=== PATIENT | female | born 1995 | race African-American/Black ===

== ENCOUNTER 2016-10-02 14:38 | Emergency (ER) | payer OTHER, MEDICAID ==
[~2016-10-02] VITALS: Ht 172.7 cm; Wt 85.0 kg
[2016-10-02 14:40] VITALS: BP 114/72; PULSE 82; RESP 15; TEMP 97.9; O2SAT 98
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
[2016-10-02] MEDS ORDERED: KETOROLAC TROMETHAMINE 60 MG/2 ML (IM) VIAL IM ONE (15:30)
[2016-10-02] MEDS ORDERED: ORPHENADRINE INJ 60 MG/2 ML AMP IM ONE (15:30)
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
[2016-10-02] MEDS ORDERED: DICL50TA3 PO (16:15)
[2016-10-02] MEDS ORDERED: ROBA750T PO (16:15)
== END 2016-10-02 16:51 | disposition home or self-care (01) ==
LOC: EDBD → NEPB 14:38
DX: S16.1XXA Strain of muscle, fascia and tendon at neck level, initial encounter (principal); S39.012A Strain of muscle, fascia and tendon of lower back, initial encounter; V43.62XA Car passenger injured in collision with other type car in traffic accident, initial encounter
CPT/HCPCS: 71010; 72050; 72100; 84703; 99283

== ENCOUNTER 2016-11-28 07:04 | Emergency (ER) | payer MEDICAID ==
[~2016-11-28] VITALS: Ht 167.6 cm; Wt 75.0 kg
[~2016-11-28 07:04] MED LIST: DICL50TA3 PO; ROBA750T PO
[2016-11-28 07:08] VITALS: BP 110/65; PULSE 85; RESP 16; TEMP 97.7; O2SAT 100
--- NOTE | 2016-11-28 07:39 | PD ---
HPI Chief Complaint: Skin Problem Time Seen by Provider: 07:32 Travel History International Travel<30 days: No Contact w/Intl Traveler<30days: No Traveled to known affect area: No History of Present Illness HPI 21-year-old female with no significant past medical issues, presents to the ER today because she has noted genital sores that appeared on his own in the past week. She states it rodriguez. She denies any fevers, unusual vaginal discharge, urinary symptoms, or any other issues. She states that she is sexually active and had a male partner 1 month ago. She denies any other new partners. Modifying Factors: None Associated Signs & Symptoms: Genital sores Risk Factors: New sexual partner 1 month ago PFSH Past Medical History Diminished Hearing: No Immunizations Current: Yes ?: Not : 1 Para: 1 Social History Alcohol Use: No Tobacco Use: No Substance Use: No Allergies-Medications (Allergen,Severity, Reaction): Coded Allergies: No Known Allergies (Unverified , 11/28/16) Reported Meds & Prescriptions Reported Meds & Active Scripts Active Robaxin (Methocarbamol) 750 Mg Tab 750 Mg PO QID PRN 2 tabs QID for 2 days, then 1 tab QID thereafter Diclofenac Sodium DR (Diclofenac Sodium) 50 Mg Tabdr 50 Mg PO BID Review of Systems Except as stated in HPI: all other systems reviewed are Neg Physical Exam Narrative GENERAL: Well-nourished, well-developed young -[place] female patient in no acute distress. SKIN: Warm and dry. HEAD: Normocephalic. EYES: No scleral icterus. No injection or drainage. NECK: Supple, trachea midline. CARDIOVASCULAR: Regular rate and rhythm without murmurs, gallops, or rubs. RESPIRATORY: Breath sounds equal bilaterally. No accessory muscle use. GASTROINTESTINAL: Abdomen soft, non-tender, nondistended. GENITOURINARY: Normal external genitalia with notable small ulcerated lesions in the mucosal part of the left labia minora with no significant surrounding erythema. Vaginal vault without blood or drainage. Cervical os was closed without drainage. No cervical motion tenderness. Uterus nontender and nonenlarged. Bilateral adnexa nontender without masses. MUSCULOSKELETAL: No cyanosis, or edema. BACK: Nontender without obvious deformity. No CVA tenderness. Data Data Last Documented VS Vital Signs Date Time Temp Pulse Resp B/P Pulse Ox O2 Delivery O2 Flow Rate FiO2 11/28/16 07:08 97.7 85 16 110/65 100 Room Air Orders Herpes Simplex Virus Culture (11/28/16 07:16) Ed Urine Pregnancytest Poc (11/28/16 07:16) Gc And Chlamydia Pcr (11/28/16 08:03) Wet Prep Profile (11/28/16 08:03) MDM Medical Decision Making Medical Screen Exam Complete: Yes Emergency Medical Condition: Yes Medical Record Reviewed: Yes Differential Diagnosis Genital soresherpes versus folliculitis versus UTI Narrative Course Genital sores concerning for herpetic lesions. My plan would be to treat her for genital herpes. In addition, I have talked to her regarding treatment for other STDs as well considering that she had unprotected sex. She is agreeable to treatment. GC has been sent. Return for any worsening in pain, redness, fevers, or new symptoms as needed. The plan has been discussed with her and she states understanding. In addition, I have talked her regarding the fact that if the sores are herpetic, she may have ongoing intermittent outbreaks and that she is contagious to other people. She states understanding. Diagnosis Primary Impression: Herpes genitalis in women Med/Other Pt SpecificInfo: Prescription(s) given Scripts Acyclovir 400 Mg Hgi483 Mg PO TID 7 Days Ref 0 Prov:Sha Liu MD 11/28/16 Disposition: 01 DISCHARGE HOME Condition: Stable Sha Liu MD Nov 28, 2016 07:39
[2016-11-28] MEDS ORDERED: AZITHROMYCIN PWD FOR SUSP 1 GM PACKET PO ONE (08:30)
[2016-11-28] MEDS ORDERED: metroNIDAZOLE 500 MG TAB PO ONE (08:30)
[2016-11-28] MEDS ORDERED: LIDOCAINE HCL 1% 50 ML VIAL IM ONE (08:30)
[2016-11-28] MEDS ORDERED: cefTRIAXone 250 MG VIAL IM ONE (08:30)
[2016-11-28] MEDS ORDERED: ACYC400T PO (08:35)
[2016-11-28 11:52] LABS: CHLAMYDIA PCR NOT DETECTED (NOT DETECT); NEISSERIA PCR NOT DETECTED (NOT DETECT)
== END 2016-11-28 08:31 | disposition home or self-care (01) ==
LOC: NEPE 07:04
DX: A60.00 Herpesviral infection of urogenital system, unspecified (principal)
CPT/HCPCS: 84703; 87255; 87491; 87591; 96372; 99283; J0696

== ENCOUNTER 2016-12-13 10:31 | Emergency (ER) | payer MEDICAID ==
[~2016-12-13] VITALS: Ht 167.6 cm; Wt 80.0 kg
[~2016-12-13 10:31] MED LIST changes: +ACYC400T PO
[2016-12-13 10:33] VITALS: BP 137/99; PULSE 96; RESP 12; TEMP 98.9; O2SAT 100
--- NOTE | 2016-12-13 11:07 | PD ---
HPI Chief Complaint: Cold / Flu Symptoms Time Seen by Provider: 11:07 Travel History International Travel<30 days: No Contact w/Intl Traveler<30days: No Traveled to known affect area: No History of Present Illness HPI 21-year-old female presents to the emergency Department with complaint of nasal congestion, cough, body aches, headache since yesterday. Reports subjective fever and chills. Has not taken her temperature not reported MAXIMUM TEMPERATURE. Denies ear pain. Denies sore throat. Denies chest pain, shortness breath, abdominal pain. Reports vomiting one time yesterday. That she drink a lot of water and threw up all her water. Reports loose stool. Has tried taking Robitussin and NyQuil with some symptom relief. No known allergies. Denies significant past medical history. No other modifying factors or associated signs and symptoms. PFSH Past Medical History Diminished Hearing: No Immunizations Current: Yes ?: Not LMP: 11/13/16 : 1 Para: 1 Social History Alcohol Use: No Tobacco Use: No Substance Use: No Allergies-Medications (Allergen,Severity, Reaction): Coded Allergies: No Known Allergies (Unverified , 12/13/16) Reported Meds & Prescriptions Reported Meds & Active Scripts Active Tessalon Perles (Benzonatate) 100 Mg Cap 100 Mg PO TID PRN Nasonex Nasal Dunlevy (Mometasone Furoate) 50 Mcg/Act Naspr 2 Dunlevy EACH NARE DAILY PRN Ibuprofen 800 Mg Tab 800 Mg PO Q6HR PRN Acyclovir 400 Mg Tab 400 Mg PO TID 7 Days Robaxin (Methocarbamol) 750 Mg Tab 750 Mg PO QID PRN 2 tabs QID for 2 days, then 1 tab QID thereafter Diclofenac Sodium DR (Diclofenac Sodium) 50 Mg Tabdr 50 Mg PO BID Review of Systems Except as stated in HPI: all other systems reviewed are Neg Physical Exam Narrative GENERAL: Well-nourished, well-developed female patient, in no acute distress; afebrile, nontoxic-appearing SKIN: Warm and dry. No rash. HEAD: Atraumatic. Normocephalic. EYES: Pupils equal and round at 3 mm with brisk reaction. No scleral icterus. No injection or drainage. PERRLA. ENT: Mucosa pink and moist. No erythema or exudates. No uvular edema. No uvular , palatal, or tonsillar deviation. Airway patent. EARS: Bilateral pinnae and external canals appear within normal limits. Bilateral tympanic membranes without erythema, dullness or perforation. NECK: Trachea midline. No lymphadenopathy. CARDIOVASCULAR: Regular rate and rhythm. No murmur appreciated. RESPIRATORY: No accessory muscle use. Clear to auscultation. Breath sounds equal bilaterally. GASTROINTESTINAL: Abdomen soft, non-tender, nondistended. Hepatic and splenic margins not palpable. Bowel sounds are active 4 quadrants. MUSCULOSKELETAL: No obvious deformities. No clubbing. No cyanosis. No edema. NEUROLOGICAL: Awake and alert. Oriented 3. No obvious cranial nerve deficits. Motor grossly within normal limits. Normal speech. Moves all extremities. 5/5 strength to all extremities. PSYCHIATRIC: Appropriate mood and affect; insight and judgment normal. Data Data Last Documented VS Vital Signs Date Time Temp Pulse Resp B/P Pulse Ox O2 Delivery O2 Flow Rate FiO2 12/13/16 10:33 98.9 96 12 137/99 100 Orders Influenzae A/B Antigen (12/13/16 11:02) Ibuprofen (Motrin) (12/13/16 11:15) MDM Medical Decision Making Medical Screen Exam Complete: Yes Emergency Medical Condition: Yes Medical Record Reviewed: Yes Differential Diagnosis Viral illness, influenza, bronchitis, URI, gastroenteritis Narrative Course 21-year-old female with cold/flu symptoms since yesterday. Patient is afebrile in the ER. She reports subjective fever and chills at home. Has not taken her temperature and cannot reports a MAXIMUM TEMPERATURE. Patient is nontoxic- appearing. Reports vomiting one time yesterday and loose stool. Denies abdominal pain. Physical exam is unremarkable. Ibuprofen ordered. Influenza ordered. 1147: Influenza negative. Discussed viral illness and symptomatic management. Tessalon Perles, ibuprofen, Nasonex nasal spray prescribed for home. Patient verbalizes understanding and agreement with treatment plan. Patient is medically cleared and stable for discharge. Discussed reasons to return to the emergency department. Instructed patient to follow up with primary care provider. Patient agrees with treatment plan. The patients vital signs are stable and the patient is stable for outpatient follow-up and treatment. Patient discharged home, stable and in no acute distress. Diagnosis Primary Impression: Viral illness Referrals: Primary Care Physician Patient Instructions: Cold Symptoms (ED), General Instructions, Safe Use of Cough and Cold Medicines (ED) Departure Forms: Tests/Procedures, Work Release Enter return to work date: Dec 14, 2016 Additional Instructions: Ibuprofen or Tylenol as directed and as needed to reduce fever; may alternate ibuprofen and Tylenol as needed every 3 hours to minimize fever [id number] antihistamines or decongestions as directed and as needed for symptom management Get plenty of sleep/rest Drink plenty of fluids to prevent dehydration Wallace diet to encourage nutrition such as crackers, fruit, applesauce, toast, soup etc. Use an air humidifier/turn off ceiling fans Follow-up with your primary care provider within 1 day Return immediately to the emergency department with worsening of symptoms Med/Other Pt SpecificInfo: Prescription(s) given Scripts Benzonatate (Tessalon Perles)100 Mg Oli280 Mg PO TID PRN (COUGH) #20 CAP Ref 0 Prov:Gloria Araujo 12/13/16 Mometasone Nasal Dunlevy (Nasonex Nasal Dunlevy)50 Mcg/Act Naspr2 Dunlevy EACH NARE DAILY PRN (NASAL CONGESTION) #1 BOTTLE Ref 0 Prov:Gloria Araujo 12/13/16 Ibuprofen 800 Mg [id number] Mg PO Q6HR PRN (PAIN) #30 TAB Ref 0 Prov:Gloria Araujo 12/13/16 Disposition: 01 DISCHARGE HOME Condition: Stable Gloria Araujo Dec 13, 2016 11:07
[2016-12-13] MEDS ORDERED: IBUPROFEN 800 MG TAB PO ONE (11:15)
[2016-12-13] MEDS ORDERED: IBUP800T23 PO (11:49)
[2016-12-13] MEDS ORDERED: MOME17I EACH NARE (11:49)
[2016-12-13] MEDS ORDERED: BENZ100 PO (11:49)
== END 2016-12-13 11:54 | disposition home or self-care (01) ==
LOC: NETRI 10:31
DX: B34.9 Viral infection, unspecified (principal)
CPT/HCPCS: 87804; 99283

== ENCOUNTER 2016-12-15 08:31 | Emergency (ER) | payer MEDICAID ==
[~2016-12-15] VITALS: Ht 167.6 cm; Wt 78.0 kg
[~2016-12-15 08:31] MED LIST changes: +BENZ100 PO; +IBUP800T23 PO; +MOME17I EACH NARE
--- NOTE | 2016-12-15 08:43 | PD ---
HPI . head congestion, sore throat worse since last visit Chief Complaint: Cold / Flu Symptoms Time Seen by Provider: 08:42 Travel History International Travel<30 days: No Contact w/Intl Traveler<30days: No Traveled to known affect area: No History of Present Illness HPI 21-year-old female here with complaints of head congestion, sore throat and cough worse since last visit on December 13, 2016. Patient was here and diagnosed with viral illness and tells me that she has been worse ever since. She says she is still experiencing significant coughing, sore throat and more head congestion. She admits to having headache due to her sinus pressure. She denies any fever or chills. She has not been able to go to work. She has no other complaints and is requesting a note for work today. PFSH Past Medical History Diminished Hearing: No Immunizations Current: Yes ?: Not LMP: last month : 1 Para: 1 Social History Alcohol Use: No Tobacco Use: No Substance Use: No Allergies-Medications (Allergen,Severity, Reaction): Coded Allergies: No Known Allergies (Unverified , 12/15/16) Reported Meds & Prescriptions Reported Meds & Active Scripts Active Prednisone 50 Mg Tab 50 Mg PO DAILY Augmentin (Amoxicillin-Clavulanate) 875-125 mg Tab 875 Mg PO BID not for use in CrCl <30 ml/min. Tessalon Perles (Benzonatate) 100 Mg Cap 100 Mg PO TID PRN Nasonex Nasal [place] (Mometasone Furoate) 50 Mcg/Act Naspr 2 [place] EACH NARE DAILY PRN Ibuprofen 800 Mg Tab 800 Mg PO Q6HR PRN Acyclovir 400 Mg Tab 400 Mg PO TID 7 Days Robaxin (Methocarbamol) 750 Mg Tab 750 Mg PO QID PRN 2 tabs QID for 2 days, then 1 tab QID thereafter Diclofenac Sodium DR (Diclofenac Sodium) 50 Mg Tabdr 50 Mg PO BID Review of Systems General / Constitutional: No: Fever Eyes: No: Visual changes HENT: Positive: Headaches, Sore Throat, Congestion Cardiovascular: No: Chest Pain or Discomfort Respiratory: Positive: Cough, No: Shortness of Breath Gastrointestinal: No: Abdominal Pain Genitourinary: No: Dysuria Musculoskeletal: No: Pain Skin: No Rash Neurologic: No: Weakness Psychiatric: No: Depression Endocrine: No: Polydipsia Hematologic/Lymphatic: No: Easy Bruising Physical Exam Narrative GENERAL: AAO x 3, no acute distress, Well-nourished, well-developed patient. SKIN: Warm and dry. No visible rashes or bruising. HEAD: Normocephalic and atraumatic. EYES: No scleral icterus. No injection or drainage. EOM intact, PERRLA ENT: No nasal drainage noted. Mucous membranes pink. Airway patent. moderate posterior pharynx erythema, without exudates or edema. Frontal and maxillary sinus tenderness to palpation. NECK: Supple, trachea midline. No JVD.cervical chain lymphadenopathy present. CARDIOVASCULAR: Regular rate and rhythm without murmurs, gallops, or rubs. RESPIRATORY: Breath sounds equal bilaterally. No accessory muscle use. No rhonchi or rales. GASTROINTESTINAL: Abdomen soft, non-tender, nondistended. EXTREMITIES: No cyanosis or edema. BACK: Nontender without obvious deformity. No CVA tenderness. PSYCH: AAO x 3, normal affect. Data Data Last Documented VS Vital Signs Date Time Temp Pulse Resp B/P Pulse Ox O2 Delivery O2 Flow Rate FiO2 12/15/16 08:50 98.2 102 16 125/88 98 MDM Medical Decision Making Medical Screen Exam Complete: Yes Emergency Medical Condition: Yes Medical Record Reviewed: Yes (12/13/16 viral illness) Differential Diagnosis acute sinusitis, bronchitis, less like PNA Narrative Course 21-year-old female here with complaints of head congestion, sore throat and cough worse since last visit on December 13, 2016. Patient was here and diagnosed with viral illness and tells me that she has been worse ever since. She says she is still experiencing significant coughing, sore throat and more head congestion. She admits to having headache due to her sinus pressure. She denies any fever or chills. She has not been able to go to work. She has no other complaints and is requesting a note for work today. Patient seen and examined. She appears to have a sinusitis, pharyngitis and possible bronchitis.I do not suspect any pneumonia. I will go ahead and treat her with a course of antibiotics and steroids. I've advised her to continue ibuprofen and Tylenol as needed for pain and fever. I've explained that she will need to follow-up with primary care provider. Patient verbalized understanding of instructions, questions were answered, and thanked me for their care. I advised them if their condition worsens, please return to the nearest emergency room for further care. Diagnosis Primary Impression: Acute sinusitis Qualified Code: J01.90 - Acute sinusitis, recurrence not specified, unspecified location Additional Impressions: Acute pharyngitis Qualified Code: J02.9 - Acute pharyngitis, unspecified etiology Bronchitis Patient Instructions: Acute Bronchitis (ED), General Instructions, Pharyngitis (ED), Sinusitis (ED) Departure Forms: Tests/Procedures, Work Release Enter return to work date: Dec 16, 2016 Additional Instructions: Please return to emergency department if your symptoms return or worsen. Follow up with your primary care provider. Take medications as prescribed. Take medications as prescribed. Try salt water gargles. Do not share utensils, toothbrush, etc. If you develop difficulty breathing, please go to the nearest emergency room. Med/Other Pt SpecificInfo: Prescription(s) given Scripts Prednisone 50 Mg Tab50 Mg PO DAILY #5 TAB Prov:Carroll Bear MD 12/15/16 Amoxicillin-Clavulanate (Augmentin)875-125 mg Wnt610 Mg PO BID #20 TAB not for use in CrCl <30 ml/min. Prov:Carroll Bear MD 12/15/16 Disposition: 01 DISCHARGE HOME Condition: Stable Alie Burgos Dec 15, 2016 08:43
[2016-12-15] MEDS ORDERED: PRED50 PO (08:47)
[2016-12-15] MEDS ORDERED: AUGM875T PO (08:47)
[2016-12-15 08:50] VITALS: BP 125/88; PULSE 102; RESP 16; TEMP 98.2; O2SAT 98
== END 2016-12-15 09:01 | disposition home or self-care (01) ==
LOC: NEPK 08:31
DX: J01.90 Acute sinusitis, unspecified (principal); J02.9 Acute pharyngitis, unspecified; J40 Bronchitis, not specified as acute or chronic
CPT/HCPCS: 99283

== ENCOUNTER 2017-12-29 20:09 | Emergency (ER) | payer MEDICAID ==
[~2017-12-29] VITALS: Ht 162.6 cm; Wt 78.0 kg
[~2017-12-29 20:09] MED LIST changes: +AUGM875T PO; +IBUP1TAB7 PO; -IBUP800T23 PO; +PRED50 PO
[2017-12-29 20:12] VITALS: BP 129/62; PULSE 88; RESP 20; TEMP 98.1; O2SAT 99
== END 2017-12-29 21:29 | disposition left against medical advice (07) ==
LOC: NED 20:09
DX: R09.89 Other specified symptoms and signs involving the circulatory and respiratory systems (principal)
CPT/HCPCS: 99281